=== PATIENT | male | born 1965 | race Caucasian/White ===

== ENCOUNTER 2020-11-09 15:28 | Inpatient (IN) | payer OTHER ==
[2020-11-09 17:54] VITALS: BMI 25.7
[2020-11-09] MEDS ORDERED: MENTHOL/PHENOL 1 EACH UD MM PRN (17:57)
[2020-11-09] MEDS ORDERED: BISMUTH SUBSALICYLATE 524 MG/30 ML UD PO PRN (17:57)
[2020-11-09] MEDS ORDERED: MAGNESIUM HYDROX 2400MG/30ML ORAL SUSPENSION 30 ML CUP PO PRN (17:57)
[2020-11-09] MEDS ORDERED: IBUPROFEN 400 MG TABLET (FP) PO PRN (17:57)
[2020-11-09] MEDS ORDERED: MAGNESIUM CITRATE 300 ML BOTTLE PO PRN (17:57)
[2020-11-09] MEDS ORDERED: ACETAMINOPHEN 325 MG TABLET (FP) PO PRN ×2 (17:57)
[2020-11-09] MEDS ORDERED: MAG HYDROX/AL HYDROX/SIMETH 30 ML UNIT-DOSE CUP PO PRN (17:57)
[2020-11-09] MEDS ORDERED: ONDANSETRON *ODT* 4 MG TABLET SL PRN (17:57)
[2020-11-09] MEDS ORDERED: chlordiazePOXIDE HCL 25 MG CAPSULE PO ONE (18:19)
[2020-11-09] MEDS ORDERED: TRIMETHOBENZAMIDE HCL 200MG/2ML INJ IM ONE ×2 (18:37→19:02)
[2020-11-09] MEDS ORDERED: chlordiazePOXIDE HCL 25 MG CAPSULE ONE (19:02)
[2020-11-09] MEDS: MELATONIN 5 MG TABLETS PO SCH (22:03)
[2020-11-09] MEDS: hydrOXYzine PAMOATE 25 MG CAPSULE (FP) PO PRN (22:04)
[2020-11-09] MEDS: THIAMINE HCL 100 MG TABLET (FP) PO SCH (22:04)
[2020-11-09] MEDS: chlordiazePOXIDE HCL 25 MG CAPSULE PO SCH (22:04)
[2020-11-09] MEDS ORDERED: METOPROLOL TARTRATE 50 MG TABLET (FP) PO ONE (22:35)
[2020-11-10] MEDS: chlordiazePOXIDE HCL 25 MG CAPSULE PO SCH ×4 (05:05→22:12)
[2020-11-10] MEDS ORDERED: TRIMETHOBENZAMIDE HCL 200MG/2ML INJ IM PRN (09:54)
[2020-11-10] MEDS: PRENATAL VITAMINS W/ FOLIC ACID TABLET (FP) PO SCH (10:03)
[2020-11-10] MEDS: hydrOXYzine PAMOATE 25 MG CAPSULE (FP) PO PRN ×2 (10:05→22:51)
[2020-11-10 11:25] LABS: POTASSIUM 3.3 mmol/L (3.5-5.1)
[2020-11-10 11:26] LABS: CALCIUM 7.9 mg/dL (8.5-10.1)
[2020-11-10 11:27] LABS: ALBUMIN 3.4 g/dl (3.4-5.0); BLOOD UREA NITROGEN 15.9 mg/dL (7-18); HEMATOCRIT 40.5 % (35.4-49); HEMOGLOBIN 13.5 GM/dL (11.7-16.9); MCH 28.3 pg (25.7-33.7); MCHC 33.3 g/dl (32.0-35.9); MEAN CELL VOLUME 84.9 fl (80-96); PLATELET COUNT 200 K/MM3 (134-434); RBC 4.77 M/mm3 (4.00-5.60); RDW 13.7 % (11.9-15.9); WHITE BLOOD COUNT 4.7 K/mm3 (4.0-10.0)
[2020-11-10 11:30] LABS: CREATININE 0.9 mg/dL (0.55-1.3)
[2020-11-10 11:32] LABS: BILIRUBIN,TOTAL 0.8 mg/dL (0.2-1); TOT PROT 6.5 g/dl (6.4-8.2)
[2020-11-10] MEDS: chlordiazePOXIDE HCL 25 MG CAPSULE PO PRN (12:56)
[2020-11-10] MEDS: THIAMINE HCL 100 MG TABLET (FP) PO SCH (22:11)
[2020-11-10] MEDS: MIRTAZAPINE 15 MG TABLET (FP) PO SCH (22:11)
[2020-11-10] MEDS: MELATONIN 5 MG TABLETS PO SCH (22:12)
[2020-11-11] MEDS: chlordiazePOXIDE HCL 25 MG CAPSULE PO SCH ×4 (06:33→22:04)
[2020-11-11] MEDS: PRENATAL VITAMINS W/ FOLIC ACID TABLET (FP) PO SCH (11:26)
[2020-11-11] MEDS ORDERED: POTASSIUM CHLORIDE TABS 20 MEQ TABLET.ER (FP) PO ONE (11:41)
[2020-11-11] MEDS: hydrOXYzine PAMOATE 25 MG CAPSULE (FP) PO PRN ×2 (13:32→17:51)
[2020-11-11] MEDS: chlordiazePOXIDE HCL 25 MG CAPSULE PO PRN (13:33)
[2020-11-11] MEDS ORDERED: MASKS NR ONE (16:44)
[2020-11-11] MEDS: METHOCARBAMOL 500 MG TABLET PO PRN (17:50)
[2020-11-11] MEDS: MIRTAZAPINE 15 MG TABLET (FP) PO SCH (22:04)
[2020-11-11] MEDS: THIAMINE HCL 100 MG TABLET (FP) PO SCH (22:04)
[2020-11-11] MEDS: MELATONIN 5 MG TABLETS PO SCH (22:05)
[2020-11-12] MEDS ORDERED: chlordiazePOXIDE HCL 10 MG CAPSULE PO PRN
[2020-11-12] MEDS: hydrOXYzine PAMOATE 25 MG CAPSULE (FP) PO PRN ×2 (02:06→07:13)
[2020-11-12] MEDS: chlordiazePOXIDE HCL 10 MG CAPSULE PO SCH ×2 (05:11→10:21)
[2020-11-12] MEDS: METHOCARBAMOL 500 MG TABLET PO PRN (05:12)
[2020-11-12 10:15] VITALS: BP 141/93; PULSE 108; TEMP 97.5
[2020-11-12] MEDS: PRENATAL VITAMINS W/ FOLIC ACID TABLET (FP) PO SCH (10:20)
[2020-11-13] MEDS ORDERED: chlordiazePOXIDE HCL 10 MG CAPSULE PO SCH (05:00)
[2020-11-14] MEDS ORDERED: chlordiazePOXIDE HCL 10 MG CAPSULE PO ONE (05:00)
== END 2020-11-12 12:24 | disposition left against medical advice (07) | DRG 894 ==
LOC: YASAS 15:28 → Y3N 19:15
PROVIDERS: ADMIT Allergy & Immunology; ATTEND Allergy & Immunology
PROC: HZ2ZZZZ Detoxification Services for Substance Abuse Treatment (ICD-10-PCS; principal; 2020-11-09)
DX: F10.230 Alcohol dependence with withdrawal, uncomplicated (principal); F10.220 Alcohol dependence with intoxication, uncomplicated; F10.24 Alcohol dependence with alcohol-induced mood disorder; F32.9 Major depressive disorder, single episode, unspecified; E87.6 Hypokalemia; E83.51 Hypocalcemia; J45.909 Unspecified asthma, uncomplicated; R74.01 Elevation of levels of liver transaminase levels; R73.9 Hyperglycemia, unspecified; R03.0 Elevated blood-pressure reading, without diagnosis of hypertension; Z56.0 Unemployment, unspecified; Z59.0 Homelessness; Z91.013 Allergy to seafood
CPT/HCPCS: 36415; 80053; 82962; 85027; 86780; C9803; Q0162; U0003